=== PATIENT | male | born 1990 | race Caucasian/White ===

== ENCOUNTER 2020-05-01 00:26 | Emergency (ER) | payer SELFPAY ==
[~2020-05-01] VITALS: Ht 182.9 cm; Wt 65.9 kg
[2020-05-01 00:57] LABS: BASOPHILS % (AUTO) 1 % (0-1); EOSINOPHILS % (AUTO) 2 % (1-7); LYMPHOCYTES % (AUTO) 34 % (22-44); MD NO; MEAN CORPUSCULAR HEMOGLOBIN 30.2 pg (27.5-34.5); MEAN CORPUSCULAR HGB CONC 34.5 g/dL (33.2-36.2); MEAN PLATELET VOLUME 9.4 fL (7.4-10.4); MONOCYTES % (AUTO) 7 % (2-9); NEUTROPHILS % (AUTO) 57 % (42-75); PLATELET COUNT 192 x10^3/uL (130-400); RED CELL DISTRIBUTION WIDTH 12.7 % (9.4-14.8)
[2020-05-01] MEDS ORDERED: SODIUM CHLORIDE 0.9% 1,000ML IVBOLUS ONE (01:00)
[2020-05-01 01:07] LABS: ALANINE AMINOTRANSFERASE 22 U/L (12-78); ALBUMIN 4.2 g/dL (3.4-5.0); ANION GAP 8 mmol/L (5-15); CALCIUM 9.3 mg/dL (8.5-10.1); CHLORIDE 109 mmol/L (98-107); CREATININE 1.19 mg/dL (0.7-1.3)
[2020-05-01 01:10] LABS: ALKALINE PHOSPHATASE 70 U/L (45-117); BILIRUBIN,TOTAL 0.8 mg/dL (0.2-1.0); TOTAL PROTEIN 7.2 g/dL (6.4-8.2)
--- NOTE | 2020-05-01 01:30 | NUR ---
EMT [facility] returned with pt belongings.
--- NOTE | 2020-05-01 01:35 | NUR ---
dc home with instruct and f/u to return to Er if worse or concerns.
--- NOTE | 2020-05-01 01:51 | NUR ---
Pt given clothes, appropriate for weather to go home in. Pt has uber and funds to take his own cab home.
[2020-05-01 01:52] VITALS: BP 125/71
== END 2020-05-01 01:55 | disposition home or self-care (01) ==
LOC: ED 01:45
DX: A09 Infectious gastroenteritis and colitis, unspecified (principal); R55 Syncope and collapse; R10.84 Generalized abdominal pain; Z95.0 Presence of cardiac pacemaker
CPT/HCPCS: 36415; 71045; 80053; 83690; 85025; 93005; 99285; J7030

== ENCOUNTER 2020-05-05 00:39 | Emergency (ER) | payer SELFPAY ==
[~2020-05-05] VITALS: Ht 182.9 cm; Wt 64.0 kg
--- NOTE | 2020-05-05 00:46 | NUR ---
PROVIDER AT BEDSIDE AT THIS TIME
--- NOTE | 2020-05-05 00:47 | NUR ---
THIS IS A 30Y M BIB EMS FROM HOME, PT STS HE FELT IF HE WAS GOING TO PASS OUT TONIGHT AND RATHER DIZZY. PT HAS PACEMAKER WHICH LOW SETTING IS 60BMP. UPON ARRIVAL TO ED PT HR 51. 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
[2020-05-05 01:15] LABS: BASOPHILS % (AUTO) 1 % (0-1); EOSINOPHILS % (AUTO) 3 % (1-7); LYMPHOCYTES % (AUTO) 37 % (22-44); MEAN CORPUSCULAR HEMOGLOBIN 30.3 pg (27.5-34.5); MEAN CORPUSCULAR HGB CONC 34.6 g/dL (33.2-36.2); MEAN PLATELET VOLUME 9.3 fL (7.4-10.4); MONOCYTES % (AUTO) 10 % (2-9); NEUTROPHILS % (AUTO) 49 % (42-75); PLATELET COUNT 181 x10^3/uL (130-400); RED CELL DISTRIBUTION WIDTH 12.7 % (9.4-14.8)
[2020-05-05 01:16] LABS: MD NO
[2020-05-05 01:27] LABS: ALANINE AMINOTRANSFERASE 21 U/L (12-78); ANION GAP 6 mmol/L (5-15); CALCIUM 8.8 mg/dL (8.5-10.1); CHLORIDE 110 mmol/L (98-107)
[2020-05-05 01:37] LABS: ALKALINE PHOSPHATASE 79 U/L (45-117); BILIRUBIN,TOTAL 0.4 mg/dL (0.2-1.0); FREE T4 (FREE THYROXINE) 1.01 ng/dL (0.76-1.46); TOTAL PROTEIN 7.1 g/dL (6.4-8.2); TROPONIN I < 0.015 ng/mL (0.000-0.045)
--- NOTE | 2020-05-05 01:56 | NUR ---
Pt asymptomatic at this time. Warm blanket given. VSS. Will monitor,.
[2020-05-05 02:15] VITALS: BP 105/66
--- NOTE | 2020-05-05 02:17 | NUR ---
Pt dc'd with written and verbal instructions. Pt with no current symptoms. Pt instructed to f/u with heat treatment technician. Pt A&O x 3. Pt ambulatory out of ED without difficulty.
== END 2020-05-05 02:19 | disposition home or self-care (01) ==
LOC: ED 01:13
DX: R06.00 Dyspnea, unspecified (principal); R42 Dizziness and giddiness; R00.2 Palpitations; R55 Syncope and collapse; F41.1 Generalized anxiety disorder; Z95.0 Presence of cardiac pacemaker
CPT/HCPCS: 36415; 71045; 80053; 84439; 84443; 84484; 85025; 93005; 99285